=== PATIENT | male | born 1945 | race Caucasian/White ===

== ENCOUNTER → 2018-04-10 | Outpatient (CLI) | payer MEDICARE, BC ==
[~2018-04-10] MED LIST: ASPI-650 PO; ATOR40TA78 PO; LISI-167 PO; OMEP-110 PO; TAMS-11 PO
[2018-04-10 11:06] LABS: ALANINE AMINOTRANSFERASE 34 U/L (12-78); ALBUMIN 3.9 g/dL (3.4-5.0); ANION GAP 6 mmol/L (5-15); CALCIUM 8.9 mg/dL (8.5-10.1); CHLORIDE 104 mmol/L (98-107); CREATININE 0.95 mg/dL (0.7-1.3)
[2018-04-10 11:08] LABS: ALKALINE PHOSPHATASE 58 U/L (45-117); BILIRUBIN,TOTAL 0.6 mg/dL (0.2-1.0); TOTAL PROTEIN 7.7 g/dL (6.4-8.2)
== END | disposition home or self-care (01) ==
LOC: STAR 09:44
PROVIDERS: ATTEND Surgery
DX: Z01.818 Encounter for other preprocedural examination (principal)
CPT/HCPCS: 36415; 80053; 93005

== ENCOUNTER 2018-04-20 08:17 | Day surgery (SDC) | payer MEDICARE, BC ==
[~2018-04-20] VITALS: Ht 175.3 cm; Wt 92.7 kg
[2018-04-20] MEDS ORDERED: LACTATED RINGERS 1,000 ML IV SCH (08:37)
[2018-04-20] MEDS ORDERED: DIPH25CA61 PO (08:38)
[2018-04-20] MEDS ORDERED: DIAZEPAM 5 MG TABLET PO STA (09:28)
[2018-04-20] MEDS ORDERED: ACETAMINOPHEN 500 MG TABLET PO STA (09:28)
[2018-04-20] MEDS ORDERED: TAMSULOSIN 0.4 MG CAP.ER.24H PO STA (09:28)
[2018-04-20] MEDS ORDERED: GABAPENTIN 300 MG CAPSULE PO STA (09:28)
[2018-04-20] MEDS ORDERED: ONDANSETRON ODT 8 MG PO STA (09:28)
[2018-04-20] MEDS ORDERED: TAMSULOSIN 0.4 MG CAP.ER.24H ONE (09:30)
[2018-04-20] MEDS ORDERED: ACETAMINOPHEN 500 MG TABLET ONE (09:31)
[2018-04-20] MEDS ORDERED: DIAZEPAM 5 MG TABLET ONE (09:31)
[2018-04-20] MEDS ORDERED: ONDANSETRON ODT 8 MG ONE (09:31)
[2018-04-20] MEDS ORDERED: GABAPENTIN 300 MG CAPSULE ONE (09:31)
[2018-04-20] MEDS ORDERED: FENTANYL PF 250 MCG/5ML ONE (10:10)
[2018-04-20] MEDS ORDERED: MIDAZOLAM 1 MG/ML, 2ML ONE (10:10)
[2018-04-20] MEDS ORDERED: BUPIVACAINE/PF-EPI 0.5% 1:200K ONE (10:47)
[2018-04-20] MEDS ORDERED: ROCURONIUM 10MG/ML,5ML ONE (11:10)
[2018-04-20] MEDS ORDERED: SUCCINYLCHOLINE 20 MG/ML, 10ML ONE (11:10)
[2018-04-20] MEDS ORDERED: PROPOFOL 10 MG/ML, 20ML ONE (11:47)
[2018-04-20] MEDS ORDERED: DEXAMETHASONE 4 MG/ML, 1ML ONE (11:47)
[2018-04-20] MEDS ORDERED: CEFAZOLIN 1,000 MG ONE (11:47)
[2018-04-20] MEDS ORDERED: PROMETHAZINE 25 MG/ML, 1ML IV PRN (12:00)
[2018-04-20] MEDS ORDERED: MIDAZOLAM 1 MG/ML, 2ML IV PRN (12:00)
[2018-04-20] MEDS ORDERED: HYDROmorphone 2 MG/ML, 1ML IVPush PRN (12:00)
[2018-04-20] MEDS ORDERED: hydrALAzine 20 MG/ML, 1ML IV PRN (12:00)
[2018-04-20] MEDS ORDERED: OXYcodone 5 MG/5 ML ORAL.SOL UDC PO PRN (12:00)
[2018-04-20] MEDS ORDERED: METOPROLOL 1 MG/ML, 5ML IV PRN (12:00)
[2018-04-20] MEDS ORDERED: ALBUTEROL/IPRATROPIUM 2.5MG/0.5MG, 3 ML NPPB PRN (12:00)
[2018-04-20] MEDS ORDERED: ONDANSETRON 2MG/ML, 2ML IV PRN (12:00)
[2018-04-20] MEDS ORDERED: FENTANYL PF 100 MCG/2ML IV PRN (12:00)
[2018-04-20] MEDS ORDERED: OXYcodone 5 MG/5 ML ORAL.SOL UDC ONE (12:49)
[2018-04-20] MEDS ORDERED: hydrALAzine 20 MG/ML, 1ML ONE (12:54)
== END 2018-04-20 16:05 | disposition home or self-care (01) ==
LOC: OUT 08:17
PROVIDERS: ATTEND Surgery
DX: K40.90 Unilateral inguinal hernia, without obstruction or gangrene, not specified as recurrent (principal); K43.2 Incisional hernia without obstruction or gangrene; K42.9 Umbilical hernia without obstruction or gangrene; R59.1 Generalized enlarged lymph nodes; E78.5 Hyperlipidemia, unspecified; K21.9 Gastro-esophageal reflux disease without esophagitis; I10 Essential (primary) hypertension; N40.0 Benign prostatic hyperplasia without lower urinary tract symptoms; Z86.73 Personal history of transient ischemic attack (TIA), and cerebral infarction without residual deficits; Z79.82 Long term (current) use of aspirin; Z98.890 Other specified postprocedural states; Z87.891 Personal history of nicotine dependence; Z72.89 Other problems related to lifestyle
CPT/HCPCS: 49505; 49560; 49585; 88305; C1781; J0330; J0360; J0690; J1100; J2704; J3010; J7120; Q0162; J2250